=== PATIENT | female | born 1985 | race Caucasian/White ===

== ENCOUNTER 2021-04-05 19:15 | Emergency (ER) | payer OTHER, SELFPAY ==
[2021-04-05 19:18] VITALS: BP 117/83; PULSE 81; RESP 16; TEMP 36.7; O2SAT 99; BMI 26.6
--- NOTE | 2021-04-05 22:08 | ED.URI ---
HPI - URI/Sore Throat General Chief Complaint: Upper Respiratory Symptoms Stated Complaint: whole body hurts, throat feels like closing, DYSPH Time Seen by Provider: 04/05/21 22:08 History of Present Illness HPI Narrative: Patient is a 35-year-old female who presents with variety of complaints. Biggest complaint today is esophageal spasm. She says every time she eats or drinks anything she feels like it gets stuck. This is been ongoing for a while not significantly worse today but is quite frustrated. She is managing secretions she is eating and drinking but feels like it spasms frequently. She has ongoing joint pain she is being worked up for rheumatoid arthritis. She just finished 9 day course of prednisone on the prednisone she felt amazing however off the prednisone she is now starting have hand pain again. She has overall fatigued and tired. No fever or chills. She and were trying to get and he is now deployed. She is overall very stressed and frustrated. Related Data Previous Rx's Medication Instructions Recorded omeprazole 20 mg capsule,delayed 20 mg PO BID #30 cap 04/05/21 release Allergies Allergy/AdvReac Type Severity Reaction Status Date / Time egg Allergy Verified 04/05/21 19:24 gluten Allergy Verified 04/05/21 19:24 lactase [From Dairy Aid] Allergy Verified 04/05/21 19:24 soy Allergy Verified 04/05/21 19:24 Review of Systems Review of Systems Narrative: GENERAL: Denies chills, fatigue, malaise, fever, sweats, travel HEENT: Difficulty swallowing see HPI RESPIRATORY: Denies dyspnea, cough, wheezing, hemoptysis, sputum. CARDIOVASCULAR: Denies chest pain, palpitations, orthopnea, edema GASTROINTESTINAL: Denies nausea, vomiting, abdominal pain, diarrhea, constipation, melena. : Denies dysuria, frequency, incontinence, hematuria, urinary retention, flank pain. MUSCULOSKELETAL: Joint pain, see HPI SKIN: No rash, no erythema, no pruritus NEUROLOGIC: Denies weakness, dizziness, headache, numbness, change in speech, confusion PSYCHIATRIC: No concerning psychosocial issues. 12 point review of systems is negative except for those stated above and HPI Exam Initial Vital Signs Initial Vital Signs: Vital Signs Temperature 98.0 F 04/05/21 19:18 Pulse Rate 81 04/05/21 19:18 Respiratory Rate 16 09/11/21 19:18 Blood Pressure 117/83 04/05/21 19:18 Pulse Oximetry 99 04/05/21 19:18 GENERAL: Tearful 35-year-old female HEENT: Head atraumatic,EOMI, pupils reactive PHARYNX: No erythema, no tonsillar exudate, no cervical lymphadenopathy CARDIOVASCULAR: Regular rate and rhythm without murmurs, rubs or gallops. RESPIRATORY: Breath sounds equal bilaterally, no wheezes rales or rhonchi. EXTREMITIES: Normal range of motion, no clubbing or edema. Neurovascularly intact. No significant swelling of joints no erythematous NEUROLOGICAL: Alert and oriented x4. SKIN: Warm, dry, no laceration, no petechiae, no rashes or lesions. Course Orders Ordered: Discontinued Medications Al Hydrox/Mg Hydrox/Simethicone 20 ml/ Lidocaine HCl 15 ml 0 ml PO NOW ONE Stop: 04/05/21 22:09 Last Admin: 04/05/21 22:32 Dose: 35 ml Documented by: ATAYLOR Vital Signs Vital signs: Vital Signs - 8 hr 04/05/21 19:18 Temperature 98.0 F Pulse Rate 81 Respiratory Rate 16 Blood Pressure 117/83 Pulse Oximetry 99 MDM - URI/Sore Throat MDM Narrative Medical decision making narrative: Discussion with patient alternatives including elimination diet. She says that she is actually trying to eliminate dairy and gluten from her diet already. She is waiting for rheumatoid evaluation. We discussed pros and cons of COVID vaccine as well she is very open to the idea of getting vaccinated but was holding off secondary to trying to have a child. His seems of her biggest complaint is esophageal spasm. This may be related to acid reflux versus something else. I said less at least try antacid medication to see if it helps. She is open and willing to try this. Overall feeling better at the end of the visit. At and recommended outpatient follow-up. Discharge Plan Departure Patient Disposition: Home Clinical Impression: Spasm of esophagus Instructions: Steakhouse Syndrome Activity Restrictions/Additional Instructions: *You have been diagnosed with esophageal spasm *What to do: At this time I think quite your experiencing may be related to acid reflux. Try at least 2 weeks of antacid medication to see if it helps that at all. I do recommend trying elimination diet to see if that helps any of your other symptoms as well. Wait for rheumatology consultation. *Continue to take medications as directed Omeprazole 20 mg twice a day for 2 weeks then once a day or as needed *Follow up with your primary care provider in 2-3 days *Return to ER if you should have increasing pain, food that is stuck, difficulty breathing any new, worsening or concerning symptoms Prescriptions: New omeprazole 20 mg capsule,delayed release(DR/EC) 20 mg PO BID Qty: 30 RF: 0 Referrals: [facility] [Provider Group]
[2021-04-05] MEDS: MAG HYDROX/ALUMINUM/SIMETH SUS 20 ML, LIDOCAINE VISCOUS 2% 15 ML PO (22:32)
== END 2021-04-05 22:41 | disposition home or self-care (01) ==
PROVIDERS: Emergency Provider Emergency Medicine
DX: K22.4 Dyskinesia of esophagus (principal)
CPT/HCPCS: 99283

== ENCOUNTER → 2021-04-17 07:59 | Outpatient (CLI) | payer OTHER, SELFPAY ==
--- NOTE | 2021-04-17 | DI.RAD.S_ITS ---
PROCEDURE: XR HAND RT MIN 3V INDICATIONS: BILATERAL HAND PAIN/ RIGHT SHOULDER PAIN TECHNIQUE: 3 views of the hand acquired. COMPARISON: None. FINDINGS: Bones: No acute fractures or dislocations. Carpal bones are normally aligned. No suspicious bony lesions. Soft tissues: No suspicious soft tissue calcifications. IMPRESSION: No acute osseous abnormality. If the symptoms persist, consider cross sectional imaging such as MRI or CT for further assessment. Dictated by: Trell Aden M.D. on 04/17/2021 at 9:56 Approved by: Trell Aden M.D. on 04/17/2021 at 10:00
--- NOTE | 2021-04-17 | DI.RAD.S_ITS ---
PROCEDURE: XR SHOULDER RT MIN 2V INDICATIONS: BILATERAL HAND PAIN/ RIGHT SHOULDER PAIN TECHNIQUE: Three views of the shoulder were acquired. COMPARISON: None. FINDINGS: Bones: No acute fractures or dislocations. No suspicious bony lesions. Visualized ribs appear intact. Soft tissues: No suspicious soft tissue calcifications. IMPRESSION: No acute osseous abnormality. If the symptoms persist, consider cross sectional imaging such as MRI or CT for further assessment. Dictated by: Trell Aden M.D. on 04/17/2021 at 9:55 Approved by: Trell Aden M.D. on 04/17/2021 at 9:56
--- NOTE | 2021-04-17 | DI.RAD.S_ITS ---
PROCEDURE: XR HAND LT MIN 3V INDICATIONS: BILATERAL HAND PAIN/ RIGHT SHOULDER PAIN TECHNIQUE: Three views of the hand acquired. COMPARISON: None. FINDINGS: Bones: No acute fractures or dislocations. Carpal bones are normally aligned. No suspicious bony lesions. Soft tissues: No suspicious soft tissue calcifications. IMPRESSION: No acute osseous abnormality. If the symptoms persist, consider cross sectional imaging such as MRI or CT for further assessment. Dictated by: Trell Aden M.D. on 04/17/2021 at 10:00 Approved by: Trell Aden M.D. on 04/17/2021 at 10:01
== END ==
PROVIDERS: Referring Provider Family Medicine; Visit Provider Family Medicine
DX: M25.511 Pain in right shoulder (principal); M79.642 Pain in left hand; M79.641 Pain in right hand
CPT/HCPCS: 73030; 73130

== ENCOUNTER 2022-12-28 09:52 | Day surgery (SDC) | payer OTHER, SELFPAY ==
--- NOTE | 2022-12-28 | PATH_ITS ---
[facility] Accession Number: [id number] No. of containers..02 Tissue . 01 Material submitted: . PART A: duodenum - DUODENUM PART B: stomach - ANTRUM . 01 Diagnosis: A. Duodenum, Biopsy: Duodenal mucosa with no diagnostic abnormality. Negative for active inflammation, features of sprue, dysplasia, or malignancy. . B. Gastric Antrum, Biopsy: Gastric antral mucosa with no diagnostic abnormality. No evidence of Helicobacter organisms on H/E stain. Negative for intestinal metaplasia. Negative for dysplasia or malignancy. [facility] 12/31/2022 1317 Local . 01 Electronically signed: . Hermilo Whitehead MD, PhD, Pathologist NPI- [id number] . 01 Gross description: . Part A: DUODENUM: Received in formalin are 2 fragment(s) of brown, soft tissue measuring 0.2 x 0.2 x 0.2 cm to 0.4 x 0.3 x 0.2 cm submitted entirely in 1 cassette(s) Part B: ANTRUM: Received in formalin is 1 fragment(s) of brown, soft tissue measuring 0.1 x 0.1 x 0.1 cm submitted entirely in 1 cassette(s) /JOHNATHAN 12/30/2022 0103 Local . 01 Pathologist provided ICD-10: R12 . 01 CPT . 862283, [id number] Specimen Comment: A courtesy copy of this report has been sent to [phone] Performed at: 01 [facility] [address] [place] [address] [id number] MD Aiden Lobato MD Phone: [phone]
[2022-12-28 10:27] VITALS: BP 116/78; PULSE 99; RESP 19; TEMP 36.6; O2SAT 98; BMI 28.5
[2022-12-28] MEDS: LACTATED RINGERS 1,000 ML 42 ML IV (10:36)
--- NOTE | 2022-12-28 10:42 | PM.HP.1 ---
History of Present Illness History of Present Illness Date Patient Seen: 12/28/22 Time Patient Seen: 10:42 Chief complaint: EGD & Colonoscopy Narrative: I reviewed the recent notes by Melissa Enamorado and Khoi Levin. Updated EGD and colonoscopy are requested for dyspepsia reflux bloating constipation abdominal pain exclusion of celiac. [facility] Social History household members: spouse Smoking Status: Never smoker alcohol intake: current Meds Home Medications and Allergies Home Medications Medication Instructions Recorded Confirmed Type adalimumab 40 mg/0.8 mL 40 mg SUBCUT Q2W 12/28/22 12/28/22 History subcutaneous pen kit (Humira Pen) azathioprine 50 mg tablet 50 mg PO DAILY 12/28/22 12/28/22 History escitalopram oxalate 10 mg tablet 10 mg PO DAILY 12/28/22 12/28/22 History hydroxychloroquine 200 mg tablet 200 mg PO BID 12/28/22 12/28/22 History linaclotide 72 mcg capsule 72 mcg PO DAILY 12/28/22 12/28/22 History (Linzess) montelukast 10 mg tablet 10 mg PO DAILY 12/28/22 12/28/22 History omeprazole 20 mg capsule,delayed 20 mg PO DAILY 12/28/22 12/28/22 History release Allergies Allergy/AdvReac Type Severity Reaction Status Date / Time egg Allergy Verified 12/28/22 10:18 gluten Allergy Verified 12/28/22 10:18 lactase [From Dairy Aid] Allergy Verified 12/28/22 10:18 soy Allergy Verified 12/28/22 10:18 Review of Systems Review of Systems ROS: Yes All systems reviewed with the patient and are negative except as otherwise documented Exam Vital Signs (past 8 hours): - 12/28/22 10:27 Temperature 97.8 F Pulse Rate 99 H Respiratory Rate 19 Blood Pressure 116/78 Pulse Oximetry 98 Oxygen Delivery Method Room Air Oxygen Flow Rate 0 Oxygen Delivery Method Room Air Oxygen Flow Rate 0 Const General: cooperative HENMT Head: normal to inspection Eyes General: appearance normal, both eyes and all related structures Neck Neck: normal visual inspection Chest Chest: normal inspection of the chest Resp Effort & Inspection: normal respiratory effort Cardio Rate: regular rate GI Inspection: normal to inspection Skin General: no rashes or lesions noted Neuro General: patient alert and patient awake Extrem General: normal to inspection and no pedal edema Psych Appearance: grossly normal Assessment & Plan Assessment & Plan narrative: 37-year-old female with chronic dyspepsia heartburn bloating abdominal pain constipation. Diagnostic EGD and colonoscopy are pursued today
--- NOTE | 2022-12-28 10:43 | PM.PREOP ---
Pre-operative Note Interval Note History & Physical reviewed/Exam performed by Physician: Yes Changes to H&P: No ASA Class (for procedural sedation): II
--- NOTE | 2022-12-28 11:42 | P.OP.EGD&C_ITS ---
Operative Date/Time/Diagnoses Date of procedure: 12/28/22 Time of procedure: 11:42 Procedure & Clinicians Study performed: EGD with biopsies and colonoscopy Same procedure as scheduled: Yes Indications: Dyspepsia, heartburn, bloating, abdominal pain, constipation Surgeon: Isaiah Davidson Procedure Notes SCOAP/Timeout: Done Procedure in detail: After the risks and benefits were explained, written and verbal informed consent was obtained. The patient was brought into the procedure room and placed into the left lateral decubitus position. Please see anesthesia notes for sedation details. The scope was introduced into the mouth through the bite block and advanced under direct visualization to the 2nd portion of the duodenum. The scope was slowly withdrawn carefully examining the mucosa for any defects or lesions. Retroflexed views were accomplished in the stomach. The stomach was decompressed, the scope was then removed from the patient who tolerated the procedure well. The patient was then turned around. A digital rectal examination was accomplished. The scope was introduced into the rectum and advanced to the cecum as identified by the appendiceal orifice and ileocecal valve. The terminal ileum was interrogated. The scope was then slowly withdrawn to carefully examine the mucosa for any defects or lesions. Multiple direct views were made through the dentate line for exclusion of pathology. The colon was decompressed. The scope withdrawn from the patient who tolerated the procedure well. Pediatric colonoscope Bowel prep adequate Scope withdrawal time: 9 minutes Sedation minutes: 28 Complications: none Impression: 1. Duodenum: No pathology was appreciated from the bulb through to the 2nd portion. Random D2 biopsies were taken for exclusion of sprue. 2. Stomach: The patient had a fairly J-shaped stomach. There were a few scattered subtle erosive features in the antrum and biopsies were acquired for e xclusion of H pylori or other pathology. Otherwise there was no significant mucosal pathology throughout the remainder of the stomach including retroflexed views. 3. Esophagus: The squamocolumnar junction correlated with the top of the gastric folds. GEJ was at roughly 37 cm from the incisors. No acute erosive changes no strictures no mass lesions. The remainder of the esophagus was unremarkable. 4. Terminal ileum: This was normal in appearance. 5. Colon: The patient had a normal rectal exam. There was no evidence of proctitis nor colitis. 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 No polyps or mass lesions throughout. No obstructing pathology identified throughout. Endoscopic diagnosis 1. J-shaped stomach 2. Mild erosive gastropathy 3. Otherwise visually unremarkable EGD 4. Mild melanosis coli 5. Otherwise visually normal colonoscopy and terminal ileoscopy Post-procedure Plan for aftercare: 1. Await histopathology. 2. Follow up with Khoi Levin Disposition: PACU
[2022-12-28 11:45] VITALS: BP 105/69; PULSE 81; RESP 11; TEMP 36.2; O2SAT 98
[2022-12-28 11:50] VITALS: BP 110/82; PULSE 80; RESP 10; O2SAT 98
[2022-12-28 11:55] VITALS: BP 114/83; PULSE 77; RESP 13; TEMP 36.2; O2SAT 100
[2022-12-28 12:10] VITALS: BP 110/75; PULSE 70; RESP 14; TEMP 36.6; O2SAT 99
== END 2022-12-28 12:12 | disposition home or self-care (01) ==
PROVIDERS: PCP Family Medicine; Referring Provider Internal Medicine Gastroenterology; Visit Provider Internal Medicine Gastroenterology
PROC: 0DJ08ZZ Inspection of Upper Intestinal Tract, Via Natural or Artificial Opening Endoscopic (ICD-10-PCS; CPT 43235; principal; 2022-12-28 11:00)
PROC: 0DJD8ZZ Inspection of Lower Intestinal Tract, Via Natural or Artificial Opening Endoscopic (ICD-10-PCS; CPT 45378; 2022-12-28 11:00)
DX: K59.00 Constipation, unspecified (principal); R10.9 Unspecified abdominal pain; R14.0 Abdominal distension (gaseous); R10.13 Epigastric pain; K63.89 Other specified diseases of intestine; K31.9 Disease of stomach and duodenum, unspecified
CPT/HCPCS: 45378; 43239; J2704